=== PATIENT | female | born 1995 | race Caucasian/White ===

== ENCOUNTER 2017-03-21 20:31 | Emergency (ER) | payer BC ==
[~2017-03-21] VITALS: Ht 162.6 cm; Wt 59.1 kg
[2017-03-21 20:33] VITALS: BP 111/69
[2017-03-21 21:19] LABS: HCG UR OBC PASS
== END 2017-03-21 22:25 | disposition home or self-care (01) ==
LOC: ED 22:19
DX: N30.01 Acute cystitis with hematuria (principal)
CPT/HCPCS: 81001; 81025; 87077; 87086; 87186; 99284